=== PATIENT | female | born 1995 | race Caucasian/White ===

== ENCOUNTER 2017-07-28 01:32 | Emergency (ER) | payer OTHER ==
[2017-07-28] MEDS ORDERED: FAMOTIDINE 20 MG/2 ML SDV IVP ONE (01:34)
[2017-07-28] MEDS ORDERED: methylPREDNISolone SOD SUCC 125 MG/2 ML VIAL IVP ONE (01:34)
[2017-07-28] MEDS ORDERED: NS 1,000 ML IV ONE (01:34)
--- NOTE | 2017-07-28 01:34 | EDPHY ---
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 She then states that she broke out into hives and had trouble breathing she decided come to the emergency room. Upon arrival to the emergency room she walked in by private vehicle. She was immediately brought back to ER room 2. She is hyperventilating. She has diffuse urticaria throughout her skin. She denies any trouble swallowing. She does state she feels short of breath. No stridor. Past Medical History: Allergic reaction in the past chemicals. Past Surgical History: Denies surgical history Social History: Denies drugs or tobacco. Admits to alcohol this evening. Family History: Noncontributory ROS REVIEW OF SYSTEMS: A comprehensive 10 point review of systems is otherwise negative aside from elements mentioned in the history of present illness. Exam Constitutional hyperventilating, triage nursing summary reviewed, vital signs reviewed, awake/alert. Eyes normal conjunctivae and sclera, EOMI, PERRLA. HENT normal inspection, atraumatic, moist mucus membranes, no epistaxis, neck supple/ no meningismus, no raccoon eyes. Respiratory no wheezing or stridor, clear to auscultation bilaterally, normal breath sounds, no respiratory distress, no wheezing. Cardiovascular rate normal, regular rhythm, no murmur, no edema, distal pulses normal. Gastrointestinal soft, non-tender, no rebound, no guarding, normal bowel sounds, no distension, no pulsatile mass. Genitourinary no CVA tenderness. Musculoskeletal no midline vertebral tenderness, full range of motion, no calf swelling, no tenderness of extremities, no meningismus, good pulses, neurovascularly intact. Skin diffuse urticaria. Neurologic awake, alert and oriented x 3, AAOx3, moves all 4 extremities equally, motor intact, sensory intact, CN II-XII intact, normal cerebellar, normal vision, normal speech. Psychiatric normal mood/affect. Heme/Lymph/Immune no lymphadenopathy. Differential Diagnosis: Includes but is not limited to in a particular order acute allergic reaction, anaphylaxis, anaphylactic shock, severe allergic reaction Medical Decision Making: Plan for this patient IV establishment, IV Solu-Medrol , IV Pepcid, IV Benadryl, IM epinephrine 0.3 mg, full quality assurance monitor, supplemental oxygen closed re-evaluation. Re-evaluation: 0213: Serum alcohol level 103. 0213: Re-evaluation at this time heart rate currently 108, pulse ox 100% on room air, respiratory rate 16, blood pressure 138/80. No further progression of allergic reaction. She is resting comfortably after IV Benadryl, IV Pepcid, IV Solu-Medrol, IM epinephrine. 0511: Patient has been observed here for over 4 hr. There has been no recurrence of allergic reaction she feels well. She is ambulatory throughout the emergency room. She is drinking fluids at her vital signs are completely stable. There has been no progression of allergic reaction she otherwise feels well. I do recommend she takes prednisone, Benadryl, and Pepcid for the next 3 days. Return precautions discussed. She understands return emergency room if develops any worsening signs of allergic reaction or further symptoms. Vomiting trouble breathing, rash, fever, chest pain or any other questions or concerns. Source: Patient Constitutional: Initial Vital Signs Heart Rate 108 H 07/28/17 01:34 Respiratory Rate 25 H 07/28/17 01:34 Blood Pressure 138/83 H 07/28/17 01:34 O2 Sat (%) 100 07/28/17 01:34 O2 Delivery Mode Room Air O2 (L/minute) 2 Allergies/Adverse Reactions: No Known Allergies Allergy (Unverified 07/28/17 02:10) Home Medications: Medication Instructions Recorded Famotidine [Pepcid 20 MG (*)] 20 mg PO BID #6 tab 07/28/17 diphenhydrAMINE [Benadryl 25 MG 25 mg PO BID #6 tab 07/28/17 (*)] predniSONE 50 mg PO DAILY #3 tablet 07/28/17 Medical Decision Making - Data Points Laboratory Results: Laboratory Results 07/28/17 01:40 07/28/17 01:40 07/28/17 07/28/17 01:40 01:40 WBC 13.30 10^3/uL H 10^3/uL (3.80-9.50) RBC 5.55 10^6/uL H 10^6/uL (4.18-5.33) Hgb 16.8 g/dL H g/dL (12.6-16.3) Hct 46.6 % % (38.0-47.0) MCV 84.0 fL fL (81.5-99.8) MCH 30.3 pg pg (27.9-34.1) MCHC 36.1 g/dL g/dL (32.4-36.7) RDW 13.1 % % (11.5-15.2) Plt Count 435 10^3/uL H 10^3/uL (150-400) MPV 9.2 fL fL (8.7-11.7) Neut % (Auto) 41.7 % % (39.3-74.2) Lymph % (Auto) 53.6 % H % (15.0-45.0) Granite % (Auto) 4.0 % L % (4.5-13.0) Eos % (Auto) 0.3 % L % (0.6-7.6) Baso % (Auto) 0.2 % L % (0.3-1.7) Nucleat RBC Rel Count 0.0 % % (0.0-0.2) Absolute Neuts (auto) 5.54 10^3/uL 10^3/uL (1.70-6.50) Absolute Lymphs (auto) 7.13 10^3/uL H 10^3/uL (1.00-3.00) Absolute Monos (auto) 0.53 10^3/uL 10^3/uL (0.30-0.80) Absolute Eos (auto) 0.04 10^3/uL 10^3/uL (0.03-0.40) Absolute Basos (auto) 0.03 10^3/uL 10^3/uL (0.02-0.10) Absolute Nucleated RBC 0.00 10^3/uL 10^3/uL (0-0.01) Immature Gran % 0.2 % % (0.0-1.1) Immature Gran # 0.03 10^3/uL 10^3/uL (0.00-0.10) Sodium 139 mEq/L mEq/L (135-145) Potassium 3.9 mEq/L mEq/L (3.5-5.2) Chloride 105 mEq/L mEq/L (97-110) Carbon Dioxide 17 mEq/l L mEq/l (22-31) Anion Gap 17 mEq/L H mEq/L (8-16) BUN 11 mg/dL mg/dL (7-23) Creatinine 0.7 mg/dL mg/dL (0.6-1.0) Estimated GFR > 60 Glucose 134 mg/dL H mg/dL (70-100) Calcium 10.1 mg/dL mg/dL (8.5-10.4) Ethyl Alcohol 104 mg/dL H mg/dL (0-10) Medications Given: Discontinued Medications Diphenhydramine HCl (Benadryl Injection) 50 mg IVP EDNOW ONE Stop: 07/28/17 01:35 Last Admin: 07/28/17 01:40 Dose: 50 mg Epinephrine HCl (Epinephrine) 0.3 mg IM EDNOW ONE Stop: 07/28/17 01:35 Last Admin: 07/28/17 01:39 Dose: 0.3 mg Famotidine (Pepcid) 20 mg IVP EDNOW ONE Stop: 07/28/17 01:35 Last Admin: 07/28/17 01:45 Dose: 20 mg Sodium Chloride (Ns) 1,000 mls @ 0 mls/hr IV EDNOW ONE; Wide Open PRN Reason: Protocol Stop: 07/28/17 01:35 Last Admin: 07/28/17 02:03 Dose: 1,000 mls Methylprednisolone Sodium Succinate (Solu-Medrol) 125 mg IVP EDNOW ONE Stop: 07/28/17 01:35 Last Admin: 07/28/17 01:40 Dose: 125 mg Departure - Departure Disposition: Home, Routine, Self-Care Clinical Impression: Allergic reaction Qualifiers: Encounter type: initial encounter Qualified Code(s): T78.40XA - Allergy, unspecified, initial encounter Condition: Good Instructions: Urticaria (ED), Anaphylaxis (ED) Additional Instructions: 1. Return emergency room immediately if he develops worsening signs of allergic reaction. 2. Take Benadryl for the next 3 days, prednisone for the next 3 days, Pepcid for the next 3 days. Referrals: Patient,NotPresent [Unknown] - As per Instructions Prescriptions: diphenhydrAMINE [Benadryl 25 MG (*)] 25 mg PO BID #6 tab Famotidine [Pepcid 20 MG (*)] 20 mg PO BID #6 tab predniSONE 50 mg PO DAILY #3 tablet
[2017-07-28 01:49] LABS: PLATELET COUNT 435 10^3/uL (150-400)
[2017-07-28] MEDS ORDERED: methylPREDNISolone SOD SUCC 125 MG/2 ML VIAL ONE (02:00)
[2017-07-28 02:39] VITALS: TEMP 98.2; O2SAT 97
[2017-07-28 05:21] VITALS: BP 118/75; PULSE 78; RESP 16
== END 2017-07-28 05:22 | disposition home or self-care (01) ==
DX: T78.49XA Other allergy, initial encounter (principal); E86.9 Volume depletion, unspecified
CPT/HCPCS: 96374; G0480; J0171; J1200; J2930